=== PATIENT | female | born 1985 | race Caucasian/White ===

== ENCOUNTER 2017-07-15 17:10 | Emergency (ER) | payer SELFPAY ==
[~2017-07-15] VITALS: Ht 139.7 cm; Wt 59.0 kg
[2017-07-15 17:33] VITALS: BP 141/78
--- NOTE | 2017-07-15 18:12 | NUR ---
PT TO ER BED 2
--- NOTE | 2017-07-15 18:14 | NUR ---
31/F BIB FAMILY C/O UPPER ABDOMEN X 3 DAYS---SHARP AND CRAMP TYPE PAIN, FREQUENT LOOSE STOOLS.DENIES N/V. SKIN IS PINK/WARM/DRY; AAOX4 WITH EVEN AND STEADY GAIT; LUNGS CLEAR BL; PT DENIES ANY FEVER, CP, SOB, OR COUGH AT THIS TIME; PATIENT STATES PAIN OF 8/10 AT THIS TIME; PATIENT POSITIONED FOR COMFORT; HOB ELEVATED; BEDRAILS UP X2; BED DOWN. ER MD MADE AWARE OF PT STATUS.
[2017-07-15] MEDS ORDERED: PANTOPRAZOLE 40 MG TABEC PO ONE (18:30)
[2017-07-15] MEDS ORDERED: KETOROLAC 60 MG/2 ML VIAL IM ONE (18:30)
--- NOTE | 2017-07-15 18:41 | NUR ---
PT TAKEN TO X RAY
[2017-07-15 19:08] VITALS: BP 124/68
--- NOTE | 2017-07-15 19:08 | NUR ---
Patient discharged with v/s stable. Written and verbal after care instructions given and explained. Patient alert, oriented and verbalized understanding of instructions. Ambulatory with steady gait. All questions addressed prior to discharge. ID band removed. Patient advised to follow up with PMD. Rx of MIRALAX & MOTRIN given. Patient educated on indication of medication including possible reaction and side effects. Opportunity to ask questions provided and answered.
== END 2017-07-15 19:08 | disposition home or self-care (01) ==
LOC: MED 17:10
DX: K59.00 Constipation, unspecified (principal); R03.0 Elevated blood-pressure reading, without diagnosis of hypertension
CPT/HCPCS: 74022; 81025; 96372; 99284; J1885